=== PATIENT | female | born 1960 | race African-American/Black ===

== ENCOUNTER 2019-02-28 16:28 | Inpatient (IN) | payer OTHER ==
[2019-02-28 19:49] VITALS: BMI 33.5
--- NOTE | 2019-02-28 21:04 | HP ---
"CIWA Score Nausea/Vomitin-No Nausea/No Vomiting Muscle Tremors: 4-Moderate,w/Arms Extend Anxiety: 0-No Anxiety, at Ease Agitation: 4-Moderately Restless Paroxysmal Sweats: No Perspiration Orientation: 0-Oriented Tacttile Disturbances: 0-None Auditory Disturbances: 0-None Visual Disturbances: 0-None Headache: 0-None Present CIWA-Ar Total Score: 8 - Admission Criteria OASAS Guidelines: Admission for Medically Managed Detox: Requires at least one of the followin. CIWA greater than 12 2. Seizures within the past 24 hours 3. Delirium tremens within the past 24 hours 4. Hallucinations within the past 24 hours 5. Acute intervention needed for co occurring medical disorder 6. Acute intervention needed for co occurring psychiatric disorder 7. Severe withdrawal that cannot be handled at a lower level of care (continued vomiting, continued diarrhea, abnormal vital signs) requiring intravenous medication and/or fluids 8. Patient presents the following: Seizures, delirium tremens or hallucinations in the past 12 hours (Hallucinations and Tx'd @ [facility]. Given Librium in ED and transferred to [facility]) Admission Criteria Met: Admission criteria met Admission ROS [facility] Chief Complaint: Alcohol withdrawal w/ recent hallucinations. Allergies/Adverse Reactions: Allergies Allergy/AdvReac Type Severity Reaction Status Date / Time No Known Allergies Allergy Verified 02/28/19 19:30 History of Present Illness: 58 yof presents w/ alcohol use disorder and crack use disorder. States this is the first detox attempt. [facility] referred here as she was hearing voices when drinking. Also hears voices when not drinking. Went in 02/26 and left this am. Alcohol use began at age 25. States drinks 6 - 16 oz cans or more daily . Last drink 1 day ago in am. Cocaine/crack use began at age 27. Uses $30-40 daily. Hx: Seizure - last 2011.- on Keppra Denies blackouts or overdoses. PMHx: DM, Hyperlipidemia, Seizures, Asthma - last exacerbation 3 weeks ago. MHHx: Schizophrenia and bipolar. Occ A/V Hallucinations- occurs when non- compliant w/ medications or when drinking. Last saw [facility] Provider today @ [facility]. On medications. Denies thoughts of harming self or others. Search Terms: Izabel Dill, 1960 Search Date: 02/28/2019 08:52:58 PM The Drug Utilization Report below displays all of the controlled substance prescriptions, if any, that your patient has filled in the last twelve months. The information displayed on this report is compiled from pharmacy submissions to the Department, and accurately reflects the information as submitted by the pharmacies. This report was requested by: Kristie Segovia | Reference #: [id number] There are no results for the search terms that you entered. Search Terms: Izabel Dill, 1960 Search Date: 02/28/2019 08:53:16 PM States Searched: [place], [place], [place], [place], [place], [place], [place] The Drug Utilization Report below displays the controlled substance prescriptions, if any, that were dispensed in the indicated state(s). The information displayed on this report is compiled from requests submitted to other states' PMPs, and accurately reflects the information as returned by them. Blank staton indicate data not provided by other state. This report was requested by: Kristie Segovia | Reference #: [id number] Exam Limitations: No Limitations - Ebola screening Have you traveled outside of the country in the last 21 days: No (N) Have you had contact with anyone from an Ebola affected area: No Have you been sick,other than usual withdrawal symptoms: No (Denies recent ezposure to measles) Do you have a fever: No - Review of Systems Constitutional: Diaphoresis EENT: reports: Dental Problems (Missing lower teeth. Chews and swallows ok.) Respiratory: reports: No Symptoms reported Cardiac: reports: No Symptoms Reported GI: reports: No Symptoms Reported : reports: No Symptoms Reported Musculoskeletal: reports: No Symptoms Reported Integumentary: reports: No Symptoms Reported Neuro: reports: Headache, Tremors Endocrine: reports: No Symptoms Reported Hematology: reports: No Symptoms Reported Psychiatric: reports: Judgement Intact, Orientated x3, Agitated (Denies thoughts of harming self or others.), Anxious Patient History - PPD History Previous Implant?: Yes Documented Results: Negative w/o proof Implanted On Prior [facility] Admission?: No PPD to be Administered?: Yes - Reproductive History Patient is a Female of Child Bearing Age (11 -55 yrs old): No Patient : No - Smoking Cessation Smoking history: Current every day smoker Have you smoked in the past 12 months: Yes Aproximately how many cigarettes per day: 2 Hx Chewing Tobacco Use: No Initiated information on smoking cessation: Yes 'Breaking Loose' booklet given: 02/28/19 - Substance & Tx. History Hx Alcohol Use: Yes Hx Substance Use: Yes Substance Use Type: Alcohol, Cocaine (Crack) Hx Substance Use Treatment: Yes ([facility] - given Benzo and librium 02/27-2018 in ED) - Substances abused Alcohol Substance route: Oral Frequency: Daily Amount used: 1 case of beer Age of first use: 25 Date of last use: 02/27/19 Crack Substance route: Smoking Frequency: 3-6 times per week Amount used: 60 dollars Age of first use: 27 Date of last use: 02/19/19 Admission Physical Exam S - Vital Signs Vital Signs: Vital Signs - 24 hr 02/28/19 19:30 Temperature 98.4 F Pulse Rate 97 H Respiratory 18 Rate Blood Pressure 111/74 - Physical General Appearance: Yes: Nourished, Mild Distress, Tremorous, Anxious HEENTM: Yes: EOMI, Hearing grossly Normal, Normocephalic, Normal Voice, CHASITY, Pharynx Normal (Missing some teeth) Respiratory: Yes: Lungs Clear, Normal Breath Sounds, No Respiratory Distress Neck: Yes: No masses,lesions,Nodules, Supple Breast: Yes: Breast Exam Deferred Cardiology: Yes: Regular Rhythm, Regular Rate, S1, S2 Abdominal: Yes: Non Tender, Soft, Increased Bowel Sounds, Protuberent ( Increased abdominal adiposity) Genitourinary: Yes: Within Normal Limits Back: Yes: Normal Inspection Musculoskeletal: Yes: full range of Motion, Gait Steady Extremities: Yes: Normal Capillary Refill, Normal Range of Motion, Non-Tender, Tremors (Mild tremors of hands w/ arm elevation) Neurological: Yes: hedis analyst II-XII NML intact, Fully Oriented, Alert, Motor Strength 5/5, Normal Mood/Affect Integumentary: Yes: Normal Color, Dry, Warm, Other (Superfical open abrasions both gluteal areas, tender to touch.. Pinkish/reddish granulation tissue. (L) lower cheek approx 3 cm; (R) lower cheeck approx 2 cm.) Lymphatic: Yes: Within Normal Limits - Diagnostic (1) Alcohol dependence with uncomplicated withdrawal Current Visit: Yes Status: Acute (2) Cocaine dependence, uncomplicated Current Visit: Yes Status: Chronic (3) Nicotine abuse Current Visit: Yes Status: Chronic Comment: 2 cigarettes/day (4) History of seizure Current Visit: Yes Status: Chronic Comment: On Keppra (5) History of asthma Current Visit: Yes Status: Chronic (6) Essential (primary) hypertension Current Visit: Yes Status: Chronic (7) Abrasion Current Visit: Yes Status: Acute Cleared for Admission S - Detox or Rehab [facility] Level of Care: Medically Managed Detox Regimen/Protocol: Librium Claeared for Rehab Admission: No Breathalyzer - Breathalyzer Breathalyzer: 0 Urine Drug Screen - Test Device Lot number: [id number] Expiration date: 11/24/20 - Control Is test valid?: Yes - Results Drug screen NEGATIVE: No Urine drug screen results: NATALIIA-Cocaine, BZO-Benzodiazepines Inpatient Rehab Admission - Rehab Decision to Admit Inpatient rehab admission?: No"
[2019-02-28] MEDS ORDERED: NICOTINE POLACRILEX 2 MG GUM BUC PRN (21:29)
[2019-02-28] MEDS ORDERED: MAG HYDROX/AL HYDROX/SIMETH 30 ML UNIT-DOSE CUP PO PRN (21:29)
[2019-02-28] MEDS ORDERED: MAGNESIUM CITRATE 300 ML BOTTLE PO PRN (21:29)
[2019-02-28] MEDS ORDERED: IBUPROFEN 400 MG TABLET (FP) PO PRN (21:29)
[2019-02-28] MEDS ORDERED: METHOCARBAMOL 500 MG TABLET PO PRN (21:29)
[2019-02-28] MEDS ORDERED: chlordiazePOXIDE HCL 10 MG CAPSULE PO PRN (21:29)
[2019-02-28] MEDS ORDERED: BISMUTH SUBSALICYLATE 524 MG/30 ML UD PO PRN (21:29)
[2019-02-28] MEDS ORDERED: MAGNESIUM HYDROX 2400MG/30ML ORAL SUSPENSION 30 ML CUP PO PRN (21:29)
[2019-02-28] MEDS ORDERED: ACETAMINOPHEN 325 MG TABLET (FP) PO PRN ×2 (21:29)
[2019-02-28] MEDS ORDERED: MENTHOL/PHENOL 1 EACH UD MM PRN (21:29)
[2019-02-28] MEDS ORDERED: ALBUTEROL SO4 0.083% IH SOL 2.5 MG/3 ML VIAL.NEB. NEB PRN (21:41)
[2019-02-28] MEDS ORDERED: HALOPERIDOL 5 MG TABLET (FP) PO ONE (23:00)
[2019-02-28] MEDS ORDERED: HALOPERIDOL 2 MG TABLET PO ONE (23:00)
[2019-02-28] MEDS ORDERED: chlordiazePOXIDE HCL 25 MG CAPSULE PO ONE (23:00)
[2019-02-28] MEDS: levETIRAcetam 500 MG TABLET (FP) PO SCH (23:01)
[2019-02-28] MEDS: THIAMINE HCL 100 MG TABLET (FP) PO SCH (23:03)
[2019-02-28] MEDS: ATORVASTATIN CA 40 MG TABLET (FP) PO SCH (23:03)
[2019-02-28] MEDS: MELATONIN 5 MG TABLETS PO PRN (23:03)
[2019-02-28] MEDS: BACITRACIN 15 GM TUBE TOPICAL OINTMENT TP SCH (23:04)
[2019-02-28] MEDS: chlordiazePOXIDE HCL 25 MG CAPSULE PO SCH ×2 (23:09→23:10)
[2019-03-01] MEDS: chlordiazePOXIDE 5 MG CAPSULE PO SCH ×3 (05:50→22:15)
[2019-03-01] MEDS: metFORMIN HCL 500 MG TABLET (FP) PO SCH ×2 (06:12→17:20)
[2019-03-01 07:51] LABS: EPI CELLS 6.6 /HPF (0-5/HPF); HYALINE CASTS 2 /lpf (0-8); PH,URINE 5.5 (5.0-8.0); URINE APPEARANCE CLEAR; URINE BACTERIA 957.5 /hpf (NEGATIVE); URINE BILIRUBIN NEGATIVE (NEGATIVE); URINE COLOR YELLOW; URINE GLUCOSE (UA) 3+ (NEGATIVE); URINE KETONE TRACE (NEGATIVE); URINE LEUK ESTERASE NEGATIVE (NEGATIVE); URINE NITRITE NEGATIVE (NEGATIVE); URINE PROTEIN NEGATIVE (NEGATIVE); URINE RBC 1 /hpf (0-4); URINE UROBILINOGEN 0.2 mg/dL (0.2-1.0); URINE WBC 7 /hpf (0-5)
--- NOTE | 2019-03-01 09:37 | EKG ---
Test Reason : Blood Pressure : / mmHG Vent. Rate : 089 BPM Atrial Rate : 089 BPM P-R Int : 150 ms QRS Dur : 086 ms QT Int : 366 ms P-R-T Axes : 073 072 057 degrees QTc Int : 445 ms NORMAL SINUS RHYTHM NORMAL ECG NO PREVIOUS ECGS AVAILABLE Confirmed by CATRER CASH, ROSHNI ([id number]) on 03/01/2019 9:37:08 AM Referred By: Confirmed By:ROSHNI MACHADO MD
[2019-03-01] MEDS: LISINOPRIL 10 MG TABLET (FP) PO SCH (10:10)
[2019-03-01] MEDS: PRENATAL VITAMINS W/ FOLIC ACID TABLET (FP) PO SCH (10:10)
[2019-03-01] MEDS: levETIRAcetam 500 MG TABLET (FP) PO SCH ×2 (10:10→22:16)
[2019-03-01] MEDS ORDERED: BACITRACIN 0.9 GM PACKET ONE (10:11)
[2019-03-01] MEDS: BACITRACIN 15 GM TUBE TOPICAL OINTMENT TP SCH ×2 (10:12→22:14)
[2019-03-01] MEDS: MINERAL OIL/PETROLAT/WATER TOPICAL CREAM 113 GM JAR TP SCH (11:32)
--- NOTE | 2019-03-01 11:38 | CONSULT ---
[facility] Psychiatric Consult - Data Date of interview: 03/01/19 Admission source: [facility] Identifying data: First admission to [facility] for this 58 y/o AA female self- referred for detoxification (alcohol, cocaine). Examined at [address] [place] [address]. Patient is , a mother of four, homeless, unemployed and supported on SSI benefits. Substance Abuse History: Confirmed by patient in this interview. Details in current [facility] report as follows : Smoking history: Current every day smoker. Have you smoked in the past 12 months: Yes. Aproximately how many cigarettes per day: 2. Hx Chewing Tobacco Use: No. Initiated information on smoking cessation: Yes. 'Breaking Loose' booklet given: 02/28/19. - Substance & Tx. History. Hx Alcohol Use: Yes. Hx Substance Use: Yes. Substance Use Type: Alcohol, Cocaine (Crack). Hx Substance Use Treatment: Yes ([facility] - given Benzo and librium 02/27-12/2018 in ED). - Substances abused. Alcohol. Substance route: Oral. Frequency: Daily. Amount used: 1 case of beer. Age of first use: 25. Date of last use: 02/27/19. Crack. Substance route: Smoking. Frequency: 3-6 times per week. Amount used: 60 dollars. Age of first use: 27. Date of last use: 02/19/19 Medical History: Remarkable for diabetes mellitus, hypertension, bronchial asthma, antecedent of withdrawal-related seizures and dyslipidemia. Psychiatric History: Patient is a vague, evasive and hostile historian. Ms Dill endorses a history of three psychiatric hospitalizations at the [facility] in [facility]. Diagnosed with " schizophrenia and bipolar disorder ". Patient states that she is prescribed haldol (confirmed by pharmacist, , at [facility] : script issued on 02/28/19). Psychiatric OPD care is rendered at [facility] mental [facility] clinic, as per patient. No reported history of suicide attempts. Physical/Sexual Abuse/Trauma History: Not discussed. Patient declines. Additional Comment: Urine drug screen results: NATALIIA-Cocaine, BZO- Benzodiazepines. Noted. Mental Status Exam - Mental Status Exam Alert and Oriented to: Time, Place, Person Cognitive Function: Grossly Intact Patient Appearance: Unkempt, Disheveled Mood: Hostile, Withdrawn, Irritable Affect: Mood Congruent Patient Behavior: Cooperative (marginally cooperative) Speech Pattern: Clear Voice Loudness: Normal Thought Process: Goal Oriented Thought Disorder: Bizarre Hallucinations: Denies Suicidal Ideation: Denies Homicidal Ideation: Denies Insight/Judgement: Poor Sleep: Fair Appetite: Good Gait/Station: Normal Psychiatric Findings - Problem List ([place] 1, 2,3) (1) Alcohol dependence with uncomplicated withdrawal Current Visit: Yes Status: Acute (2) Cocaine dependence, uncomplicated Current Visit: Yes Status: Chronic (3) Nicotine abuse Current Visit: Yes Status: Chronic Comment: 2 cigarettes/day (4) Schizophrenia Current Visit: Yes Status: Chronic - Initial Treatment Plan Initial Treatment Plan: Psychoeducation. Sleep hygiene. Detoxification. Haldol 5 mg po bid. Resumed after verification with pharmacist at [facility]. Side effects/benefits discussed with the patient (including abnormal involuntary movements, neuroleptic malignant syndrome and cardiovascular adverse events). No antecedent of adverse effects, as per patient. AA meetings. Observation.
[2019-03-01 12:49] LABS: HEMOGLOBIN 12.4 GM/dL (10.7-15.3); MCH 28.5 pg (25.7-33.7); MCHC 31.8 g/dl (32.0-36.0); MEAN CELL VOLUME 89.6 fl (80-96); MEAN PLT VOLUME 11.2 fl (7.5-11.1); PLATELET COUNT 242 K/MM3 (134-434); RBC 4.35 M/mm3 (3.60-5.2); RDW 15.2 % (11.6-15.6); WHITE BLOOD COUNT 4.8 K/mm3 (4.0-10.0)
[2019-03-01 12:53] LABS: ALBUMIN 3.4 g/dl (3.4-5.0); BILIRUBIN,TOTAL 0.1 mg/dL (0.2-1); CALCIUM 9.1 mg/dL (8.5-10.1); CREATININE 0.8 mg/dL (0.55-1.3); POTASSIUM 4.1 mmol/L (3.5-5.1); TOT PROT 6.2 g/dl (6.4-8.2)
--- NOTE | 2019-03-01 15:55 | PN ---
S CIWA - CIWA Score Nausea/Vomitin-No Nausea/No Vomiting Muscle Tremors: 4-Moderate,w/Arms Extend Anxiety: 3 Agitation: 1-Slight > Activity Paroxysmal Sweats: 2 Orientation: 0-Oriented Tacttile Disturbances: 0-None Auditory Disturbances: 0-None Visual Disturbances: 2-Mild Sensitivity Headache: 0-None Present CIWA-Ar Total Score: 12 BHS Progress Note (SOAP) Subjective: Tremors, Anxious, Sweating. Objective: PATIENT A & O X 1 (UNCERTAIN ABOUT CURRENT DAY / DATE AND ABOUT CURRENT LOCATION ). IN NO ACUTE DISTRESS. 03/01/19 15:55 Vital Signs Temperature 96.9 F L 03/01/19 13:31 Pulse Rate 95 H 03/01/19 13:31 Respiratory Rate 20 03/01/19 13:31 Blood Pressure 114/72 03/01/19 13:31 O2 Sat by Pulse Oximetry (%) Laboratory Tests 02/28/19 03/01/19 03/01/19 22:30 00:05 05:50 WBC RBC Hgb Hct MCV MCH MCHC RDW Plt Count MPV Sodium Potassium Chloride Carbon Dioxide Anion Gap BUN Creatinine Est GFR (CKD-EPI)AfAm Est GFR (CKD-EPI)NonAf POC Glucometer 261 Random Glucose Calcium Total Bilirubin AST ALT Alkaline Phosphatase Total Protein Albumin Urine Color Yellow Urine Appearance Clear Urine pH 5.5 Ur Specific [place] 1.052 H Urine Protein Negative Urine Glucose (UA) 3+ H Urine Ketones Trace H Urine Blood Negative Urine Nitrite Negative Urine Bilirubin Negative Urine Urobilinogen 0.2 Ur Leukocyte Esterase Negative Urine WBC (Auto) 7 Urine RBC (Auto) 1 Urine Casts (Auto) 2 U Epithel Cells (Auto) 6.6 Urine Bacteria (Auto) 957.5 Urine HCG, Qual Cancelled POC Urine HCG, Qual Negative 03/01/19 03/01/19 03/01/19 08:48 08:48 11:26 WBC 4.8 RBC 4.35 Hgb 12.4 Hct 39.0 MCV 89.6 MCH 28.5 MCHC 31.8 L RDW 15.2 Plt Count 242 MPV 11.2 H Sodium 143 Potassium 4.1 Chloride 108 H Carbon Dioxide 26 Anion Gap 9 BUN 8 Creatinine 0.8 Est GFR (CKD-EPI)AfAm 94.85 Est GFR (CKD-EPI)NonAf 81.84 POC Glucometer 225 Random Glucose 307 H* Calcium 9.1 Total Bilirubin 0.1 L AST 13 L ALT 24 Alkaline Phosphatase 92 Total Protein 6.2 L Albumin 3.4 Urine Color Urine Appearance Urine pH Ur Specific [place] Urine Protein Urine Glucose (UA) Urine Ketones Urine Blood Urine Nitrite Urine Bilirubin Urine Urobilinogen Ur Leukocyte Esterase Urine WBC (Auto) Urine RBC (Auto) Urine Casts (Auto) U Epithel Cells (Auto) Urine Bacteria (Auto) Urine HCG, Qual POC Urine HCG, Qual LABS NOTED. LEVETIRACETAM LEVEL AND RPR RESULT SPENDING. 03/01/19 15:57 Assessment: 03/01/19 15:56 WITHDRAWAL SYMPTOMS. Plan: CONTINUE DETOX. INCREASE DAILY PO FLUID / WATER INTAKE. REPEAT UA TOMORROW AM FOR ADMISSION ABNORMALITIES.
[2019-03-01] MEDS: HALOPERIDOL 5 MG TABLET (FP) PO SCH (22:15)
[2019-03-01] MEDS: ATORVASTATIN CA 40 MG TABLET (FP) PO SCH (22:16)
[2019-03-01] MEDS: THIAMINE HCL 100 MG TABLET (FP) PO SCH (22:17)
[2019-03-02] MEDS ORDERED: chlordiazePOXIDE HCL 10 MG CAPSULE PO PRN (05:00)
[2019-03-02] MEDS: chlordiazePOXIDE HCL 10 MG CAPSULE PO SCH ×3 (07:05→22:15)
[2019-03-02] MEDS: metFORMIN HCL 500 MG TABLET (FP) PO SCH ×2 (07:28→17:02)
[2019-03-02] MEDS: LISINOPRIL 10 MG TABLET (FP) PO SCH (10:34)
[2019-03-02] MEDS: PRENATAL VITAMINS W/ FOLIC ACID TABLET (FP) PO SCH (10:34)
[2019-03-02] MEDS: levETIRAcetam 500 MG TABLET (FP) PO SCH ×2 (10:35→22:14)
[2019-03-02] MEDS: MINERAL OIL/PETROLAT/WATER TOPICAL CREAM 113 GM JAR TP SCH (10:35)
[2019-03-02] MEDS: HALOPERIDOL 5 MG TABLET (FP) PO SCH ×2 (10:35→22:15)
[2019-03-02] MEDS: BACITRACIN 15 GM TUBE TOPICAL OINTMENT TP SCH ×2 (10:36→22:16)
--- NOTE | 2019-03-02 17:09 | PN ---
S CIWA - CIWA Score Nausea/Vomitin-No Nausea/No Vomiting Muscle Tremors: 2 Anxiety: 2 Agitation: 0-Normal Activity Paroxysmal Sweats: 3 Orientation: 0-Oriented Tacttile Disturbances: 0-None Auditory Disturbances: 0-None Visual Disturbances: 2-Mild Sensitivity Headache: 0-None Present CIWA-Ar Total Score: 9 BHS Progress Note (SOAP) Subjective: Tremors, Fatigue, Sweating. Objective: PATIENT A & O X 3, OBSERVED AMBULATING ON UNIT UNASSISTED. IN NO ACUTE DISTRESS. 03/02/19 17:08 Vital Signs Temperature 96.4 F L 03/02/19 14:05 Pulse Rate 86 03/02/19 14:05 Respiratory Rate 18 03/02/19 14:05 Blood Pressure 102/60 03/02/19 14:05 O2 Sat by Pulse Oximetry (%) Laboratory Tests 02/28/19 03/01/19 03/01/19 22:30 00:05 05:50 WBC RBC Hgb Hct MCV MCH MCHC RDW Plt Count MPV Sodium Potassium Chloride Carbon Dioxide Anion Gap BUN Creatinine Est GFR (CKD-EPI)AfAm Est GFR (CKD-EPI)NonAf POC Glucometer 261 Random Glucose Calcium Total Bilirubin AST ALT Alkaline Phosphatase Total Protein Albumin Urine Color Yellow Urine Appearance Clear Urine pH 5.5 Ur Specific [place] 1.052 H Urine Protein Negative Urine Glucose (UA) 3+ H Urine Ketones Trace H Urine Blood Negative Urine Nitrite Negative Urine Bilirubin Negative Urine Urobilinogen 0.2 Ur Leukocyte Esterase Negative Urine WBC (Auto) 7 Urine RBC (Auto) 1 Urine Casts (Auto) 2 U Epithel Cells (Auto) 6.6 Urine Bacteria (Auto) 957.5 Urine HCG, Qual Cancelled POC Urine HCG, Qual Negative RPR Titer 03/01/19 03/01/19 03/01/19 08:48 08:48 08:48 WBC 4.8 RBC 4.35 Hgb 12.4 Hct 39.0 MCV 89.6 MCH 28.5 MCHC 31.8 L RDW 15.2 Plt Count 242 MPV 11.2 H Sodium 143 Potassium 4.1 Chloride 108 H Carbon Dioxide 26 Anion Gap 9 BUN 8 Creatinine 0.8 Est GFR (CKD-EPI)AfAm 94.85 Est GFR (CKD-EPI)NonAf 81.84 POC Glucometer Random Glucose 307 H* Calcium 9.1 Total Bilirubin 0.1 L AST 13 L ALT 24 Alkaline Phosphatase 92 Total Protein 6.2 L Albumin 3.4 Urine Color Urine Appearance Urine pH Ur Specific [place] Urine Protein Urine Glucose (UA) Urine Ketones Urine Blood Urine Nitrite Urine Bilirubin Urine Urobilinogen Ur Leukocyte Esterase Urine WBC (Auto) Urine RBC (Auto) Urine Casts (Auto) U Epithel Cells (Auto) Urine Bacteria (Auto) Urine HCG, Qual POC Urine HCG, Qual RPR Titer Nonreactive 03/01/19 03/01/19 03/02/19 11:26 16:37 06:48 WBC RBC Hgb Hct MCV MCH MCHC RDW Plt Count MPV Sodium Potassium Chloride Carbon Dioxide Anion Gap BUN Creatinine Est GFR (CKD-EPI)AfAm Est GFR (CKD-EPI)NonAf POC Glucometer 225 181 244 Random Glucose Calcium Total Bilirubin AST ALT Alkaline Phosphatase Total Protein Albumin Urine Color Urine Appearance Urine pH Ur Specific [place] Urine Protein Urine Glucose (UA) Urine Ketones Urine Blood Urine Nitrite Urine Bilirubin Urine Urobilinogen Ur Leukocyte Esterase Urine WBC (Auto) Urine RBC (Auto) Urine Casts (Auto) U Epithel Cells (Auto) Urine Bacteria (Auto) Urine HCG, Qual POC Urine HCG, Qual RPR Titer 03/02/19 16:49 WBC RBC Hgb Hct MCV MCH MCHC RDW Plt Count MPV Sodium Potassium Chloride Carbon Dioxide Anion Gap BUN Creatinine Est GFR (CKD-EPI)AfAm Est GFR (CKD-EPI)NonAf POC Glucometer 227 Random Glucose Calcium Total Bilirubin AST ALT Alkaline Phosphatase Total Protein Albumin Urine Color Urine Appearance Urine pH Ur Specific [place] Urine Protein Urine Glucose (UA) Urine Ketones Urine Blood Urine Nitrite Urine Bilirubin Urine Urobilinogen Ur Leukocyte Esterase Urine WBC (Auto) Urine RBC (Auto) Urine Casts (Auto) U Epithel Cells (Auto) Urine Bacteria (Auto) Urine HCG, Qual POC Urine HCG, Qual RPR Titer LABS NOTED. LEVETIRACETAM LEVEL RESULT PENDING. 03/02/19 17:09 Assessment: 03/02/19 17:08 WITHDRAWAL SYMPTOMS. HYPERGLYCEMIA. Plan: CONTINUE DETOX. INCREASE DAILY PO WATER INTAKE.
[2019-03-02] MEDS: THIAMINE HCL 100 MG TABLET (FP) PO SCH (22:14)
[2019-03-02] MEDS: ATORVASTATIN CA 40 MG TABLET (FP) PO SCH (22:15)
[2019-03-02] MEDS: MELATONIN 5 MG TABLETS PO PRN (22:16)
[2019-03-03] MEDS: chlordiazePOXIDE HCL 10 MG CAPSULE PO SCH (05:38)
[2019-03-03] MEDS: metFORMIN HCL 500 MG TABLET (FP) PO SCH (06:44)
[2019-03-03] MEDS: PRENATAL VITAMINS W/ FOLIC ACID TABLET (FP) PO SCH (10:39)
[2019-03-03] MEDS: levETIRAcetam 500 MG TABLET (FP) PO SCH (10:40)
[2019-03-03] MEDS: LISINOPRIL 10 MG TABLET (FP) PO SCH (10:40)
[2019-03-03] MEDS: MINERAL OIL/PETROLAT/WATER TOPICAL CREAM 113 GM JAR TP SCH (10:43)
[2019-03-03] MEDS: HALOPERIDOL 5 MG TABLET (FP) PO SCH (10:43)
[2019-03-03] MEDS: BACITRACIN 15 GM TUBE TOPICAL OINTMENT TP SCH (10:43)
[2019-03-03 13:12] VITALS: BP 98/62; PULSE 70; TEMP 96
--- NOTE | 2019-03-03 17:16 | DS ---
[facility] Detox Discharge Summary Admission Date: 02/28/19 Discharge Date: 03/03/19 - History Present History: Alcohol Dependence, Cocaine Dependence Additional Comments: PATIENT GOING TO [facility] ([facility]) FOR AFTERCARE. PATIENT WAS DISCHARGED FROM DETOX UNIT TO BE TAKEN OVER TO REHAB UNIT IN STABLE MEDICAL CONDITION. Pertinent Past History: Nicotine Abuse, History Of Seizure, Asthma, HTN, Abrasion, Hyperglycemia, Bipolar Disorder, Schizophrenia, History Of Auditory / Visual Hallucinations ( When Drinking and/or Not Taking Medications), DM, Hyperlipidemia. - Physical Exam Results Vital Signs: Vital Signs Temperature 96 F L 03/03/19 13:11 Pulse Rate 70 03/03/19 13:11 Respiratory Rate 20 03/03/19 13:11 Blood Pressure 98/62 03/03/19 13:11 O2 Sat by Pulse Oximetry (%) Pertinent Admission Physical Exam Findings: WITHDRAWAL SYMPTOMS. Laboratory Tests 02/28/19 03/01/19 03/01/19 22:30 00:05 05:50 WBC RBC Hgb Hct MCV MCH MCHC RDW Plt Count MPV Sodium Potassium Chloride Carbon Dioxide Anion Gap BUN Creatinine Est GFR (CKD-EPI)AfAm Est GFR (CKD-EPI)NonAf POC Glucometer 261 Random Glucose Calcium Total Bilirubin AST ALT Alkaline Phosphatase Total Protein Albumin Urine Color Yellow Urine Appearance Clear Urine pH 5.5 Ur Specific [place] 1.052 H Urine Protein Negative Urine Glucose (UA) 3+ H Urine Ketones Trace H Urine Blood Negative Urine Nitrite Negative Urine Bilirubin Negative Urine Urobilinogen 0.2 Ur Leukocyte Esterase Negative Urine WBC (Auto) 7 Urine RBC (Auto) 1 Urine Casts (Auto) 2 U Epithel Cells (Auto) 6.6 Urine Bacteria (Auto) 957.5 Urine HCG, Qual Cancelled POC Urine HCG, Qual Negative RPR Titer 03/01/19 03/01/19 03/01/19 08:48 08:48 08:48 WBC 4.8 RBC 4.35 Hgb 12.4 Hct 39.0 MCV 89.6 MCH 28.5 MCHC 31.8 L RDW 15.2 Plt Count 242 MPV 11.2 H Sodium 143 Potassium 4.1 Chloride 108 H Carbon Dioxide 26 Anion Gap 9 BUN 8 Creatinine 0.8 Est GFR (CKD-EPI)AfAm 94.85 Est GFR (CKD-EPI)NonAf 81.84 POC Glucometer Random Glucose 307 H* Calcium 9.1 Total Bilirubin 0.1 L AST 13 L ALT 24 Alkaline Phosphatase 92 Total Protein 6.2 L Albumin 3.4 Urine Color Urine Appearance Urine pH Ur Specific [place] Urine Protein Urine Glucose (UA) Urine Ketones Urine Blood Urine Nitrite Urine Bilirubin Urine Urobilinogen Ur Leukocyte Esterase Urine WBC (Auto) Urine RBC (Auto) Urine Casts (Auto) U Epithel Cells (Auto) Urine Bacteria (Auto) Urine HCG, Qual POC Urine HCG, Qual RPR Titer Nonreactive 03/01/19 03/01/19 03/02/19 11:26 16:37 06:48 WBC RBC Hgb Hct MCV MCH MCHC RDW Plt Count MPV Sodium Potassium Chloride Carbon Dioxide Anion Gap BUN Creatinine Est GFR (CKD-EPI)AfAm Est GFR (CKD-EPI)NonAf POC Glucometer 225 181 244 Random Glucose Calcium Total Bilirubin AST ALT Alkaline Phosphatase Total Protein Albumin Urine Color Urine Appearance Urine pH Ur Specific [place] Urine Protein Urine Glucose (UA) Urine Ketones Urine Blood Urine Nitrite Urine Bilirubin Urine Urobilinogen Ur Leukocyte Esterase Urine WBC (Auto) Urine RBC (Auto) Urine Casts (Auto) U Epithel Cells (Auto) Urine Bacteria (Auto) Urine HCG, Qual POC Urine HCG, Qual RPR Titer 03/02/19 03/02/19 03/03/19 16:49 21:37 05:40 WBC RBC Hgb Hct MCV MCH MCHC RDW Plt Count MPV Sodium Potassium Chloride Carbon Dioxide Anion Gap BUN Creatinine Est GFR (CKD-EPI)AfAm Est GFR (CKD-EPI)NonAf POC Glucometer 227 203 216 Random Glucose Calcium Total Bilirubin AST ALT Alkaline Phosphatase Total Protein Albumin Urine Color Urine Appearance Urine pH Ur Specific [place] Urine Protein Urine Glucose (UA) Urine Ketones Urine Blood Urine Nitrite Urine Bilirubin Urine Urobilinogen Ur Leukocyte Esterase Urine WBC (Auto) Urine RBC (Auto) Urine Casts (Auto) U Epithel Cells (Auto) Urine Bacteria (Auto) Urine HCG, Qual POC Urine HCG, Qual RPR Titer LABS NOTED. - Treatment Hospital Course: Detox Protocol Followed, Detoxed Safely, Responded well, Discharged Condition Good, Rehab Referral Accepted Patient has Accepted a Rehab Referral to: [facility] ([employer], [place]). - Medication Discharge Medications: Ambulatory Orders Atorvastatin Ca [Lipitor] 40 mg PO HS 02/28/19 Haloperidol [Haldol -] 5 mg PO BID 02/28/19 Lisinopril 10 mg PO DAILY 02/28/19 Metformin HCl [Glucophage] 500 mg PO BID 02/28/19 levETIRAcetam [Keppra -] 750 mg PO BID 02/28/19 - Diagnosis (1) Abrasion Status: Acute (2) Alcohol dependence with uncomplicated withdrawal Status: Acute (3) Hyperglycemia Status: Acute (4) Cocaine dependence, uncomplicated Status: Chronic (5) Essential (primary) hypertension Status: Chronic (6) History of asthma Status: Chronic (7) History of seizure Status: Chronic (8) Nicotine abuse Status: Chronic (9) Schizophrenia Status: Chronic Qualifiers: Schizophrenia type: unspecified Qualified Code(s): F20.9 - Schizophrenia, unspecified - AMA Did Patient Leave Against Medical Advice: No
== END 2019-03-03 14:22 | disposition other institution (70) | DRG 774 ==
LOC: YASAS 16:28 → Y3N 21:13
PROVIDERS: ADMIT Neuromusculoskeletal Medicine & OMM; ATTEND Neuromusculoskeletal Medicine & OMM
PROC: HZ2ZZZZ Detoxification Services for Substance Abuse Treatment (ICD-10-PCS; principal; 2019-02-28)
DX: F10.230 Alcohol dependence with withdrawal, uncomplicated (principal); F14.20 Cocaine dependence, uncomplicated; Z72.0 Tobacco use; F20.9 Schizophrenia, unspecified; R73.9 Hyperglycemia, unspecified; Z87.09 Personal history of other diseases of the respiratory system; Z86.69 Personal history of other diseases of the nervous system and sense organs; S30.810A Abrasion of lower back and pelvis, initial encounter; X58.XXXA Exposure to other specified factors, initial encounter; Y93.9 Activity, unspecified; Y92.89 Other specified places as the place of occurrence of the external cause; Y99.8 Other external cause status
CPT/HCPCS: 36415; 80053; 80177; 81003; 81025; 82962; 85027; 86593; 93005; 93010

== ENCOUNTER 2019-03-03 14:15 | Inpatient (IN) | payer OTHER ==
[2019-03-03] MEDS ORDERED: MENTHOL/PHENOL 1 EACH UD MM PRN (17:19)
[2019-03-03] MEDS ORDERED: LOPERAMIDE HCL 2 MG CAPSULE PO PRN (17:19)
[2019-03-03] MEDS ORDERED: ACETAMINOPHEN 325 MG TABLET (FP) PO PRN (17:19)
[2019-03-03] MEDS ORDERED: MAGNESIUM HYDROX 2400MG/30ML ORAL SUSPENSION 30 ML CUP PO PRN (17:19)
[2019-03-03] MEDS ORDERED: guaiFENesin 200 MG/10 ML 10 ML UNIT-DOSE CUPS PO PRN (17:19)
[2019-03-03] MEDS ORDERED: MAGNESIUM CITRATE 300 ML BOTTLE PO PRN (17:19)
[2019-03-03] MEDS ORDERED: NICOTINE POLACRILEX 2 MG GUM BUC PRN (17:19)
[2019-03-03] MEDS ORDERED: ALBUTEROL SO4 2.5/IPRATROPIUM 0.5 INH SOL 3 ML VIAL.NEB. NEB PRN (17:20)
--- NOTE | 2019-03-03 17:22 | HP ---
[facility] Rehab Assess/Revision - Admission History Admitted to Rehab from: [facility] Date of Admission to Rehab: 03/03/2019 - Vital signs Vital Signs: NOTED; STABLE. - Findings Detox History & Physical reviewed: Yes Concur with findings: Yes Comments/Additional Findings: PATIENT'S MEDICAL / MEDICATION HISTORY REVIEWED PRIOR TO DISCHARGE FROM DETOX UNIT. PATIENT WAS DISCHARGED FROM DETOX UNIT TO BE TAKEN OVER TO REHAB UNIT IN STABLE MEDICAL CONDITION. Inpatient Rehab Admission - Rehab Decision to Admit Inpatient rehab admission?: Yes - Initial Determination Are CD services needed?: Yes Free of communicable disease: Yes Not in need of hospitalization: Yes - Rehab Admission Criteria Previous failed treatment: No Poor recovery environment: Yes Comorbidities: Yes Lacks judgement: No Patient is meeting Inpatient Rehab admission criteria:: Yes
[2019-03-03] MEDS: THIAMINE HCL 100 MG TABLET (FP) PO SCH (21:36)
[2019-03-03] MEDS: MELATONIN 5 MG TABLETS PO PRN (21:36)
[2019-03-03] MEDS: levETIRAcetam 250 MG TABLET (FP) PO SCH (21:36)
[2019-03-03] MEDS: ATORVASTATIN CA 40 MG TABLET (FP) PO SCH (21:36)
[2019-03-04] MEDS: metFORMIN HCL 500 MG TABLET (FP) PO SCH ×2 (06:22→16:59)
[2019-03-04] MEDS ORDERED: PT OWN MED DRAWER 7, Y5N ONE (08:41)
[2019-03-04] MEDS: PRENATAL VITAMINS W/ FOLIC ACID TABLET (FP) PO SCH (10:38)
[2019-03-04] MEDS: LISINOPRIL 10 MG TABLET (FP) PO SCH (10:38)
[2019-03-04] MEDS: levETIRAcetam 250 MG TABLET (FP) PO SCH ×2 (10:38→21:36)
[2019-03-04] MEDS: MELATONIN 5 MG TABLETS PO PRN (21:36)
[2019-03-04] MEDS: THIAMINE HCL 100 MG TABLET (FP) PO SCH (21:36)
[2019-03-04] MEDS: ATORVASTATIN CA 40 MG TABLET (FP) PO SCH (21:37)
[2019-03-05] MEDS: metFORMIN HCL 500 MG TABLET (FP) PO SCH ×2 (06:23→16:42)
[2019-03-05] MEDS ORDERED: PT OWN MED DRAWER 7, Y5N ONE (08:36)
[2019-03-05] MEDS: LISINOPRIL 10 MG TABLET (FP) PO SCH (09:53)
[2019-03-05] MEDS: levETIRAcetam 250 MG TABLET (FP) PO SCH ×2 (09:53→21:34)
[2019-03-05] MEDS: PRENATAL VITAMINS W/ FOLIC ACID TABLET (FP) PO SCH (09:53)
[2019-03-05] MEDS: MELATONIN 5 MG TABLETS PO PRN (21:34)
[2019-03-05] MEDS: THIAMINE HCL 100 MG TABLET (FP) PO SCH (21:34)
[2019-03-05] MEDS: ATORVASTATIN CA 40 MG TABLET (FP) PO SCH (21:34)
[2019-03-06] MEDS: metFORMIN HCL 500 MG TABLET (FP) PO SCH ×2 (06:16→16:48)
[2019-03-06] MEDS ORDERED: PT OWN MED DRAWER 7, Y5N ONE (08:41)
[2019-03-06] MEDS: levETIRAcetam 250 MG TABLET (FP) PO SCH ×2 (09:26→21:32)
[2019-03-06] MEDS: PRENATAL VITAMINS W/ FOLIC ACID TABLET (FP) PO SCH (09:26)
[2019-03-06] MEDS: LISINOPRIL 10 MG TABLET (FP) PO SCH (09:26)
[2019-03-06] MEDS: INSULIN SLIDING SCALE (NOVOLOG) 1 VIAL SQ SCH ×2 (16:50→21:37)
[2019-03-06] MEDS: MELATONIN 5 MG TABLETS PO PRN (21:32)
[2019-03-06] MEDS: ATORVASTATIN CA 40 MG TABLET (FP) PO SCH (21:32)
[2019-03-06] MEDS: THIAMINE HCL 100 MG TABLET (FP) PO SCH (21:37)
[2019-03-07] MEDS: metFORMIN HCL 500 MG TABLET (FP) PO SCH ×2 (06:56→16:26)
[2019-03-07] MEDS: INSULIN SLIDING SCALE (NOVOLOG) 1 VIAL SQ SCH ×4 (06:57→21:21)
[2019-03-07] MEDS ORDERED: INSULIN (NOVOLOG) ASPART 100 UNITS/ML 10ML VIAL ONE ×4 (07:02→20:58)
[2019-03-07] MEDS: PRENATAL VITAMINS W/ FOLIC ACID TABLET (FP) PO SCH (10:18)
[2019-03-07] MEDS: levETIRAcetam 250 MG TABLET (FP) PO SCH ×2 (10:18→21:21)
[2019-03-07] MEDS: LISINOPRIL 10 MG TABLET (FP) PO SCH (10:18)
[2019-03-07] MEDS ORDERED: PT OWN MED DRAWER 7, Y5N ONE (19:50)
[2019-03-07] MEDS: ATORVASTATIN CA 40 MG TABLET (FP) PO SCH (21:21)
[2019-03-07] MEDS: THIAMINE HCL 100 MG TABLET (FP) PO SCH (21:21)
[2019-03-07] MEDS: MELATONIN 5 MG TABLETS PO PRN (21:22)
[2019-03-08] MEDS: metFORMIN HCL 500 MG TABLET (FP) PO SCH ×2 (06:46→16:50)
[2019-03-08] MEDS: INSULIN SLIDING SCALE (NOVOLOG) 1 VIAL SQ SCH ×4 (06:46→21:42)
[2019-03-08] MEDS ORDERED: PT OWN MED DRAWER 7, Y5N ONE ×2 (08:50→19:29)
[2019-03-08] MEDS: PRENATAL VITAMINS W/ FOLIC ACID TABLET (FP) PO SCH (10:01)
[2019-03-08] MEDS: LISINOPRIL 10 MG TABLET (FP) PO SCH (10:01)
[2019-03-08] MEDS: levETIRAcetam 250 MG TABLET (FP) PO SCH ×2 (10:01→21:38)
[2019-03-08] MEDS ORDERED: INSULIN (NOVOLOG) ASPART 100 UNITS/ML 10ML VIAL ONE ×2 (16:26→22:22)
[2019-03-08] MEDS: MELATONIN 5 MG TABLETS PO PRN (21:38)
[2019-03-08] MEDS: THIAMINE HCL 100 MG TABLET (FP) PO SCH (21:38)
[2019-03-08] MEDS: ATORVASTATIN CA 40 MG TABLET (FP) PO SCH (21:38)
[2019-03-09] MEDS: metFORMIN HCL 500 MG TABLET (FP) PO SCH ×2 (06:41→16:46)
[2019-03-09] MEDS: INSULIN SLIDING SCALE (NOVOLOG) 1 VIAL SQ SCH ×4 (06:41→21:05)
[2019-03-09] MEDS ORDERED: INSULIN (NOVOLOG) ASPART 100 UNITS/ML 10ML VIAL ONE ×4 (06:41→21:06)
[2019-03-09] MEDS ORDERED: PT OWN MED DRAWER 7, Y5N ONE (08:57)
--- NOTE | 2019-03-09 09:06 | PN ---
[facility] Progress Note Note: Patient was seen by Dr White on 03/01/19 while admitted to detox. She was started on Haldol 5 mg/bid. Medication will be resumed`
[2019-03-09] MEDS: HALOPERIDOL 5 MG TABLET (FP) PO SCH ×2 (10:11→21:07)
[2019-03-09] MEDS: PRENATAL VITAMINS W/ FOLIC ACID TABLET (FP) PO SCH (10:11)
[2019-03-09] MEDS: levETIRAcetam 250 MG TABLET (FP) PO SCH ×2 (10:11→21:07)
[2019-03-09] MEDS: LISINOPRIL 10 MG TABLET (FP) PO SCH (10:12)
[2019-03-09] MEDS: MAG HYDROX/AL HYDROX/SIMETH 30 ML UNIT-DOSE CUP PO PRN (15:01)
[2019-03-09] MEDS: THIAMINE HCL 100 MG TABLET (FP) PO SCH (21:06)
[2019-03-09] MEDS: ATORVASTATIN CA 40 MG TABLET (FP) PO SCH (21:07)
[2019-03-09] MEDS: MELATONIN 5 MG TABLETS PO PRN (21:07)
[2019-03-10] MEDS: metFORMIN HCL 500 MG TABLET (FP) PO SCH ×2 (06:49→16:53)
[2019-03-10] MEDS ORDERED: INSULIN (NOVOLOG) ASPART 100 UNITS/ML 10ML VIAL ONE ×4 (06:50→21:27)
[2019-03-10] MEDS: INSULIN SLIDING SCALE (NOVOLOG) 1 VIAL SQ SCH ×4 (06:51→21:27)
[2019-03-10] MEDS: HALOPERIDOL 5 MG TABLET (FP) PO SCH ×2 (10:21→21:26)
[2019-03-10] MEDS: levETIRAcetam 250 MG TABLET (FP) PO SCH ×2 (10:21→21:26)
[2019-03-10] MEDS: PRENATAL VITAMINS W/ FOLIC ACID TABLET (FP) PO SCH (10:21)
[2019-03-10] MEDS: LISINOPRIL 10 MG TABLET (FP) PO SCH (10:21)
[2019-03-10] MEDS: THIAMINE HCL 100 MG TABLET (FP) PO SCH (21:26)
[2019-03-10] MEDS: ATORVASTATIN CA 40 MG TABLET (FP) PO SCH (21:26)
[2019-03-10] MEDS: MELATONIN 5 MG TABLETS PO PRN (21:28)
[2019-03-10] MEDS ORDERED: PT OWN MED DRAWER 7, Y5N ONE (22:10)
[2019-03-11] MEDS: metFORMIN HCL 500 MG TABLET (FP) PO SCH ×2 (06:40→16:45)
[2019-03-11] MEDS: INSULIN SLIDING SCALE (NOVOLOG) 1 VIAL SQ SCH ×4 (06:41→21:30)
[2019-03-11] MEDS ORDERED: INSULIN (NOVOLOG) ASPART 100 UNITS/ML 10ML VIAL ONE ×2 (06:52→11:40)
[2019-03-11] MEDS: PRENATAL VITAMINS W/ FOLIC ACID TABLET (FP) PO SCH (09:39)
[2019-03-11] MEDS: LISINOPRIL 10 MG TABLET (FP) PO SCH (09:39)
[2019-03-11] MEDS: HALOPERIDOL 5 MG TABLET (FP) PO SCH ×2 (09:39→21:27)
[2019-03-11] MEDS: levETIRAcetam 250 MG TABLET (FP) PO SCH ×2 (09:39→21:28)
[2019-03-11] MEDS: THIAMINE HCL 100 MG TABLET (FP) PO SCH (21:27)
[2019-03-11] MEDS: MELATONIN 5 MG TABLETS PO PRN (21:27)
[2019-03-11] MEDS: ATORVASTATIN CA 40 MG TABLET (FP) PO SCH (21:28)
[2019-03-12] MEDS: metFORMIN HCL 500 MG TABLET (FP) PO SCH ×2 (06:19→16:45)
[2019-03-12] MEDS: INSULIN SLIDING SCALE (NOVOLOG) 1 VIAL SQ SCH ×4 (06:21→21:30)
[2019-03-12] MEDS ORDERED: INSULIN (NOVOLOG) ASPART 100 UNITS/ML 10ML VIAL ONE ×2 (06:22→11:25)
[2019-03-12] MEDS: HALOPERIDOL 5 MG TABLET (FP) PO SCH ×2 (09:25→21:26)
[2019-03-12] MEDS: LISINOPRIL 10 MG TABLET (FP) PO SCH (09:25)
[2019-03-12] MEDS: PRENATAL VITAMINS W/ FOLIC ACID TABLET (FP) PO SCH (09:26)
[2019-03-12] MEDS: levETIRAcetam 250 MG TABLET (FP) PO SCH ×2 (09:26→21:26)
[2019-03-12] MEDS: THIAMINE HCL 100 MG TABLET (FP) PO SCH (21:26)
[2019-03-12] MEDS: MELATONIN 5 MG TABLETS PO PRN (21:26)
[2019-03-12] MEDS: ATORVASTATIN CA 40 MG TABLET (FP) PO SCH (21:27)
[2019-03-13] MEDS ORDERED: INSULIN (NOVOLOG) ASPART 100 UNITS/ML 10ML VIAL ONE ×4 (06:36→22:07)
[2019-03-13] MEDS: INSULIN SLIDING SCALE (NOVOLOG) 1 VIAL SQ SCH ×4 (06:44→21:42)
[2019-03-13] MEDS: metFORMIN HCL 500 MG TABLET (FP) PO SCH ×2 (06:44→16:46)
[2019-03-13] MEDS: PRENATAL VITAMINS W/ FOLIC ACID TABLET (FP) PO SCH (10:11)
[2019-03-13] MEDS: HALOPERIDOL 5 MG TABLET (FP) PO SCH ×2 (10:11→21:41)
[2019-03-13] MEDS: LISINOPRIL 10 MG TABLET (FP) PO SCH (10:11)
[2019-03-13] MEDS: levETIRAcetam 250 MG TABLET (FP) PO SCH ×2 (10:11→21:41)
[2019-03-13] MEDS: MELATONIN 5 MG TABLETS PO PRN (21:41)
[2019-03-13] MEDS: ATORVASTATIN CA 40 MG TABLET (FP) PO SCH (21:41)
[2019-03-13] MEDS: THIAMINE HCL 100 MG TABLET (FP) PO SCH (21:41)
[2019-03-14] MEDS ORDERED: INSULIN (NOVOLOG) ASPART 100 UNITS/ML 10ML VIAL ONE ×3 (06:47→16:21)
[2019-03-14] MEDS: metFORMIN HCL 500 MG TABLET (FP) PO SCH ×2 (06:54→16:38)
[2019-03-14] MEDS: INSULIN SLIDING SCALE (NOVOLOG) 1 VIAL SQ SCH ×4 (06:54→22:05)
[2019-03-14] MEDS: PRENATAL VITAMINS W/ FOLIC ACID TABLET (FP) PO SCH (09:43)
[2019-03-14] MEDS: HALOPERIDOL 5 MG TABLET (FP) PO SCH ×2 (09:43→21:27)
[2019-03-14] MEDS: LISINOPRIL 10 MG TABLET (FP) PO SCH (09:43)
[2019-03-14] MEDS: levETIRAcetam 250 MG TABLET (FP) PO SCH ×2 (09:43→21:27)
[2019-03-14] MEDS ORDERED: COLLOIDAL OATMEAL 1 BAR EACH TP PRN (11:45)
[2019-03-14] MEDS: ATORVASTATIN CA 40 MG TABLET (FP) PO SCH (21:27)
[2019-03-14] MEDS: THIAMINE HCL 100 MG TABLET (FP) PO SCH (21:27)
[2019-03-14] MEDS: MELATONIN 5 MG TABLETS PO PRN (21:28)
[2019-03-14] MEDS: MAG HYDROX/AL HYDROX/SIMETH 30 ML UNIT-DOSE CUP PO PRN (21:31)
[2019-03-15] MEDS: metFORMIN HCL 500 MG TABLET (FP) PO SCH (06:39)
[2019-03-15] MEDS: INSULIN SLIDING SCALE (NOVOLOG) 1 VIAL SQ SCH ×4 (06:41→21:38)
[2019-03-15] MEDS ORDERED: INSULIN (NOVOLOG) ASPART 100 UNITS/ML 10ML VIAL ONE ×3 (07:37→16:41)
[2019-03-15] MEDS: HALOPERIDOL 5 MG TABLET (FP) PO SCH ×2 (10:14→21:35)
[2019-03-15] MEDS: levETIRAcetam 250 MG TABLET (FP) PO SCH ×2 (10:14→21:35)
[2019-03-15] MEDS: PRENATAL VITAMINS W/ FOLIC ACID TABLET (FP) PO SCH (10:14)
[2019-03-15] MEDS: LISINOPRIL 10 MG TABLET (FP) PO SCH (10:14)
[2019-03-15] MEDS: MELATONIN 5 MG TABLETS PO PRN (21:35)
[2019-03-15] MEDS: THIAMINE HCL 100 MG TABLET (FP) PO SCH (21:35)
[2019-03-15] MEDS: ATORVASTATIN CA 40 MG TABLET (FP) PO SCH (21:35)
[2019-03-15] MEDS ORDERED: PT OWN MED DRAWER 7, Y5N ONE (21:54)
[2019-03-16] MEDS: INSULIN SLIDING SCALE (NOVOLOG) 1 VIAL SQ SCH ×4 (06:34→21:18)
[2019-03-16] MEDS: HALOPERIDOL 5 MG TABLET (FP) PO SCH ×2 (09:45→21:19)
[2019-03-16] MEDS: PRENATAL VITAMINS W/ FOLIC ACID TABLET (FP) PO SCH (09:45)
[2019-03-16] MEDS: levETIRAcetam 250 MG TABLET (FP) PO SCH ×2 (09:45→21:19)
[2019-03-16] MEDS: LISINOPRIL 10 MG TABLET (FP) PO SCH (09:45)
[2019-03-16] MEDS: MAG HYDROX/AL HYDROX/SIMETH 30 ML UNIT-DOSE CUP PO PRN (09:47)
[2019-03-16] MEDS ORDERED: INSULIN (NOVOLOG) ASPART 100 UNITS/ML 10ML VIAL ONE (11:47)
[2019-03-16] MEDS: ATORVASTATIN CA 40 MG TABLET (FP) PO SCH (21:19)
[2019-03-16] MEDS: MELATONIN 5 MG TABLETS PO PRN (21:21)
[2019-03-16] MEDS: THIAMINE HCL 100 MG TABLET (FP) PO SCH (21:21)
[2019-03-16] MEDS ORDERED: PT OWN MED DRAWER 7, Y5N ONE (21:50)
[2019-03-17] MEDS: INSULIN SLIDING SCALE (NOVOLOG) 1 VIAL SQ SCH ×2 (06:33→12:07)
[2019-03-17 07:02] VITALS: TEMP 98
[2019-03-17 09:15] VITALS: BP 110/74; PULSE 94
--- NOTE | 2019-03-17 09:19 | CONSULT ---
[facility] Psychiatric Consult - Data Date of interview: 03/17/19 Admission source: [facility] Identifying data: Patient is a 58 year old single female, mother of four, unemployed, homeless, and is supported by [facility]. This is patient's first admission to rehab at [facility]. Patient admitted to for cocaine dependence. Substance Abuse History: Smoking Cessation. Smoking history: Current every day smoker. Have you smoked in the past 12 months: Yes. Aproximately how many cigarettes per day: 2. Hx Chewing Tobacco Use: No. Initiated information on smoking cessation: Yes. 'Breaking Loose' booklet given: 02/28/19. - Substance & Tx. History. Hx Alcohol Use: Yes. Hx Substance Use: Yes. Substance Use Type : Alcohol, Cocaine (Crack). Hx Substance Use Treatment: Yes ([facility] - given Benzo and librium 02/27-12/2018 in ED). - Substances abused. Alcohol. Substance route: Oral. Frequency: Daily. Amount used: 1 case of beer. Age of first use: 25. Date of last use: 02/27/19. Crack. Substance route: Smoking. Frequency: 3-6 times per week. Amount used: 60 dollars. Age of first use: 27. Date of last use: 02/19/19 Medical History: Remarkable for diabetes mellitus, hypertension, bronchial asthma, antecedent of withdrawal-related seizures and dyslipidemia. Psychiatric History: Patient's first psychiatric contact was at 21 years of age due to the onset of disturbances of auditory hallucinations telling her to hurt herself and others. She was admitted to [facility] and treated with psychotropic medications. Ms. Dill reports an additional three psychiatric hospitalizations all at [facility], most recently two weeks ago for depression and auditory hallucinations. She was discharged with a prescription of Haldol 5mg BID. Ms. Dill reports a chronic history of nonadherence to outpatient care. States that she walks into the hospital when she becomes symptomatic and needs to resume her medications. At present, patient denies auditory/visual hallucinations but is experiencing difficulty sleeping and tremors possibly from the haldol. Physical/Sexual Abuse/Trauma History: denies. Mental Status Exam - Mental Status Exam Alert and Oriented to: Time, Place, Person Cognitive Function: Good Patient Appearance: Well Groomed Mood: Euthymic Affect: Mood Congruent Patient Behavior: Cooperative Speech Pattern: Appropriate Voice Loudness: Normal Thought Process: Goal Oriented Thought Disorder: Not Present Hallucinations: Denies Suicidal Ideation: Denies Homicidal Ideation: Denies Insight/Judgement: Poor Sleep: Poorly Appetite: Fair Muscle strength/Tone: Normal Gait/Station: Normal Psychiatric Findings - Problem List ([place] 1, 2,3) (1) Alcohol dependence Status: Chronic Qualifiers: Complication of substance-induced condition: uncomplicated (2) Cocaine dependence Status: Chronic (3) Schizophrenia Status: Chronic - Initial Treatment Plan Initial Treatment Plan: Psychoeducation provided. Detoxification in progress. Will continue haldol 5mg BID ordered by Dr. August. Will order congentin 0.5mg BID for tremors. Benefits and side effects discussed. Verbal consent given.
[2019-03-17] MEDS: HALOPERIDOL 5 MG TABLET (FP) PO SCH (09:59)
[2019-03-17] MEDS: LISINOPRIL 10 MG TABLET (FP) PO SCH (09:59)
[2019-03-17] MEDS: PRENATAL VITAMINS W/ FOLIC ACID TABLET (FP) PO SCH (09:59)
[2019-03-17] MEDS: levETIRAcetam 250 MG TABLET (FP) PO SCH (09:59)
[2019-03-17] MEDS ORDERED: BENZTROPINE MESYLATE 1 MG TABLET (FP) PO SCH (10:00)
--- NOTE | 2019-03-17 10:11 | PN ---
Psychiatric Progress Note Vital Signs: Vital Signs Period Temp Pulse Resp BP Sys/Cunningham Pulse Ox Last 24 Hr 98.0 F 94-98 16-18 110-114/67-74 Date of Session: 03/17/19 Chief Complaint:: " I would like to resume seroquel" Current Medications: Active Medications Generic Name Dose Route Start Last Admin Trade Name Freq PRN Reason Stop Dose Admin Acetaminophen 650 mg 03/03/19 17:19 03/06/19 09:26 Tylenol - PO 650 mg Q4H PRN Administration FEVER Al Hydroxide/Mg Hydroxide 30 ml 03/03/19 17:19 03/16/19 09:47 Mylanta Oral Suspension - PO 30 ml Q6H PRN Administration DYSPEPSIA Albuterol/Ipratropium 1 amp 03/03/19 17:20 Duoneb - NEB Q6H PRN SHORT OF BREATH/WHEEZING Atorvastatin Calcium 40 mg 03/03/19 22:00 03/16/19 21:19 Lipitor - PO 40 mg HS JIMENEZ Administration Benztropine Mesylate 0.5 mg 03/17/19 10:00 Cogentin - PO BID JIMENEZ Colloidal Oatmeal 1 applic 03/14/19 11:45 03/14/19 14:25 Aveeno Soap - TP 1 applic DAILY PRN Administration HYGEINE Eucalyptus/Menthol/Phenol/Sorbitol 1 each 03/03/19 17:19 Cepastat Lozenge - MM Q4H PRN SORE THROAT Guaifenesin 10 ml 03/03/19 17:19 Robitussin - PO Q6H PRN COUGH Haloperidol 5 mg 03/09/19 10:00 03/17/19 09:59 Haldol - PO 5 mg BID JIMENEZ Administration Insulin Aspart 1 vial 03/06/19 16:30 03/17/19 06:33 Novolog Vial Sliding Scale - SQ 2 units ACHS JIMENEZ Administration Protocol Levetiracetam 750 mg 03/03/19 22:00 03/17/19 09:59 Keppra - PO 750 mg BID JIMENEZ Administration Lisinopril 10 mg 03/04/19 10:00 03/17/19 09:59 Prinivil PO 10 mg DAILY JIMENEZ Administration Loperamide HCl 4 mg 03/03/19 17:19 Imodium - PO Q6H PRN DIARRHEA Magnesium Citrate 300 ml 03/03/19 17:19 Citroma - PO Q48H PRN CONSTIPATION Magnesium Hydroxide 30 ml 03/03/19 17:19 03/13/19 16:47 Milk Of Magnesia - PO 30 ml DAILY PRN Administration CONSTIPATION Melatonin 10 mg 03/13/19 09:38 03/16/19 21:21 Melatonin PO 10 mg HS PRN Administration INSOMNIA Metformin HCl 850 mg 03/15/19 16:30 03/17/19 06:33 Glucophage - PO 850 mg BID@0700,1630 JIMENEZ Administration Nicotine Polacrilex 2 mg 03/03/19 17:19 Nicorette Gum - BUC Q2H PRN NICOTINE REPLACEMENT RX Multivit/Folic Acid/Iron 1 tab 03/04/19 10:00 03/17/19 09:59 Vitamins (Sjr) - PO 1 tab DAILY JIMENEZ Administration Thiamine HCl 100 mg 03/03/19 22:00 03/16/19 21:21 Vitamin B1 - PO 100 mg HS JIMENEZ Administration Psychiatric Treatment Plan - Problem List (1) Alcohol dependence Current Visit: Yes (2) Cocaine dependence Current Visit: Yes (3) Schizophrenia Current Visit: Yes
[2019-03-17] MEDS ORDERED: PT OWN MED DRAWER 7, Y5N ONE ×2 (10:37→13:47)
--- NOTE | 2019-03-17 11:08 | PN ---
S Progress Note Note: PATIENT SEEN FOR C/O RASH TO LEFT BUTTOCK. PATIENT DENIES ITCHING AND REDNESS TO LEFT BUTTOCKS. Vital Signs Temperature 98.0 F 03/17/19 07:01 Pulse Rate 94 H 03/17/19 09:14 Respiratory Rate 17 03/17/19 09:14 Blood Pressure 110/74 03/17/19 09:14 O2 Sat by Pulse Oximetry (%) PE: ALERT AND ORIENTED X 3 SKIN WARM AND DRY, LEFT BUTTOCK INTACT, +DRY, MACULAR RASH TO AREA, NO VISIBLE LESIONS OR ULCERATIONS EXT FULL ROM, AMB AD SERA A/P: FUNGAL RASH TO LEFT BUTTOCK WILL ORDER LOTRIMIN CR BID TO LEFT BUTTOCKS X ONE WEEK CONTINUE TO MONITOR CLINICALLY
[2019-03-17] MEDS ORDERED: INSULIN (NOVOLOG) ASPART 100 UNITS/ML 10ML VIAL ONE (11:43)
[2019-03-17] MEDS ORDERED: CLOTRIMAZOLE 1% CREAM 15 GM TUBE TP SCH (12:05)
--- NOTE | 2019-03-17 16:23 | PN ---
[facility] Progress Note Note: Patient seen for request of early discharge. Patient states she would like to continue rehab services as outpatient at [facility]. Patient encouraged to stay in rehab and complete treatment but refused. Explained by auto service writer risk factors of relapse with not completing treatment however patient continued with discharge process. Patient is medically stable at this time and denies SI/HI. Patient to follow up with PCP within one week of discharge to continue medical management of chronic conditions. Patient states she accomplished all rehab goals and was pleased with program. Laboratory Tests 03/04/19 03/04/19 03/05/19 06:08 16:58 06:13 POC Glucometer 184 287 234 Levetiracetam 03/05/19 03/06/19 03/06/19 16:42 06:16 16:48 POC Glucometer 242 194 252 Levetiracetam 03/06/19 03/07/19 03/07/19 21:36 06:56 12:04 POC Glucometer 199 197 191 Levetiracetam 03/07/19 03/07/19 03/08/19 16:24 20:22 06:06 POC Glucometer 221 168 141 Levetiracetam 03/08/19 03/08/19 03/08/19 11:37 16:49 21:40 POC Glucometer 218 212 221 Levetiracetam 03/09/19 03/09/19 03/09/19 06:20 11:50 16:43 POC Glucometer 170 161 199 Levetiracetam 03/09/19 03/10/19 03/10/19 21:03 05:51 08:40 POC Glucometer 277 174 Levetiracetam 8.0 L 03/10/19 03/10/19 03/10/19 11:41 16:51 21:26 POC Glucometer 244 233 270 Levetiracetam 03/11/19 03/11/19 03/11/19 06:39 11:37 16:43 POC Glucometer 184 231 218 Levetiracetam 03/11/19 03/12/19 03/12/19 21:30 06:19 11:22 POC Glucometer 209 188 189 Levetiracetam 03/12/19 03/12/19 03/13/19 16:45 21:28 06:16 POC Glucometer 217 231 186 Levetiracetam 03/13/19 03/13/19 03/13/19 11:34 16:44 21:38 POC Glucometer 199 178 188 Levetiracetam 03/14/19 03/14/19 03/14/19 05:56 11:18 16:37 POC Glucometer 186 228 278 Levetiracetam 03/14/19 03/15/19 03/15/19 22:04 06:38 10:38 POC Glucometer 209 201 158 Levetiracetam 03/15/19 03/15/19 03/16/19 16:51 21:37 06:32 POC Glucometer 211 257 199 Levetiracetam 03/16/19 03/16/19 03/16/19 11:45 16:52 21:16 POC Glucometer 176 244 179 Levetiracetam 03/17/19 03/17/19 06:32 11:35 POC Glucometer 187 208 Levetiracetam Vital Signs Temperature 98.0 F 03/17/19 07:01 Pulse Rate 94 H 03/17/19 09:14 Respiratory Rate 17 03/17/19 09:14 Blood Pressure 110/74 03/17/19 09:14 O2 Sat by Pulse Oximetry (%) Ambulatory Orders Haloperidol [Haldol -] 5 mg PO BID 02/28/19 Metformin HCl [Glucophage] 500 mg PO BID 02/28/19 Atorvastatin Ca [Lipitor] 40 mg PO HS #15 tablet 03/17/19 Lisinopril 10 mg PO DAILY #15 tablet 03/17/19 levETIRAcetam [Keppra -] 750 mg PO BID #30 tablet 03/17/19 metFORMIN HCL [Metformin HCl] 850 mg PO BID #30 tablet 03/17/19
--- NOTE | 2019-03-17 17:19 | PN ---
[facility] Progress Note Note: Psychiatric nurse practitioner note: Patient scheduled for discharge this afternoon. A 30 day prescription of haldol 5mg BID (60 tablets) + Cogentin 0.5mg BID (60 tablets) was electronically sent to [facility] pharmacy at [address] [place] [address].
== END 2019-03-17 13:53 | disposition home or self-care (01) | DRG 772 ==
LOC: YASAS 14:15 → Y3W 14:16 → Y3E 03-14 17:57
PROVIDERS: ADMIT Neuromusculoskeletal Medicine & OMM; ATTEND Neuromusculoskeletal Medicine & OMM
PROC: HZ42ZZZ Group Counseling for Substance Abuse Treatment, Cognitive-Behavioral (ICD-10-PCS; principal; 2019-03-03)
DX: F10.20 Alcohol dependence, uncomplicated (principal); F14.20 Cocaine dependence, uncomplicated; F17.210 Nicotine dependence, cigarettes, uncomplicated; F20.9 Schizophrenia, unspecified; I10 Essential (primary) hypertension; G40.909 Epilepsy, unspecified, not intractable, without status epilepticus; R21 Rash and other nonspecific skin eruption
CPT/HCPCS: 36415; 80177; 82962